=== PATIENT | female | born 1955 | race Caucasian/White ===

== ENCOUNTER → 2017-10-13 10:43 | Outpatient (CLI) | payer OTHER, SELFPAY ==
[2017-10-13 11:11] LABS: Bacteria Urine None Seen; RBC Urine None Seen (0-5/HPF); WBC Urine None Seen (0-5/HPF)
[2017-10-13 13:35] LABS: Hematocrit 39.6 % (36-46); Hemoglobin 13.3 g/dL (12.0-16.0); Mean Corpuscular HGB Conc 33.5 % (30-36); Mean Corpuscular Hemoglobin 32.7 PG (26-34); Mean Corpuscular Volume 97.5 fL (80-100); Platelet Count 152 X10^3/uL (150-400); Red Blood Cell Count 4.07 X10^6/uL (4.0-5.2); Red Cell Distribution Width 12.3 % (11.6-14.8)
[2017-10-13 13:40] LABS: Appearance Urine UA CLEAR; Bilirubin Urine UA NEGATIVE (NEGATIVE); Color Urine UA YELLOW; Glucose Urine UA NEGATIVE (Normal); Ketones Urine UA NEGATIVE (NEGATIVE); Leukocyte Esterase Urine UA NEGATIVE (NEGATIVE); Nitrite Urine UA Negative (Negative); Occult Blood Urine UA NEGATIVE (Negative); Protein Urine UA NEGATIVE (Negative); Specific Gravity Urine UA <=1.005 (1.000-1.035); Urobilinogen Urine UA 0.2 E.U./dL (0.2)
[2017-10-13 13:48] LABS: Culture Indicated Urine Cult Not Indicated; Squamous Epithelial Cell Urine 0-1 /HPF
[2017-10-13 14:17] LABS: Alanine Aminotransferase 30 IU/L (9-52); Albumin 4.5 g/dL (3.5-5.0); Albumin Globulin Ratio 1.5 (1.0-2.8); Alkaline Phosphatase 35 U/L (38-126); Aspartate Aminotransferase 32 IU/L (14-36); BUN Creatinine Ratio 16.3 (6-22); Bilirubin Total 0.6 mg/dL (0.2-1.3); Blood Urea Nitrogen 13 mg/dL (7-17); Calcium 9.5 mg/dL (8.4-10.2); Carbon Dioxide 32 mmol/L (22-32); Chloride 103 mmol/L (98-107); Estimated Glomerular Filt Rate > 60.0 mL/min (>60); Gamma Glutamyl Transpeptidase 14 U/L (12-43); Glucose 87 mg/dL (80-110); HEMOLYSIS < 15 (0-50); Potassium 3.9 mmol/L (3.4-5.1); Sodium 146 mmol/L (137-145); Total Protein 7.5 g/dL (6.3-8.2)
[2017-10-13 14:19] LABS: Neutrophils Absolute Manual 2800 /uL (3000-5900); Total Cells Counted 100
[2017-10-13 14:33] LABS: Free T4, Direct Thyroxine 1.01 ng/dL (0.78-2.19)
[2017-10-13 14:56] LABS: Thyroid Stimulating Hormone 2.98 uIU/mL (0.47-4.68)
[2017-10-13 16:34] LABS: Hepatitis B Surface Antigen NEGATIVE s/c (NEGATIVE)
[2017-10-13 16:52] LABS: HIV 1 and 2 Antibody NEGATIVE (NEGATIVE); Hep C Virus Ab w/Reflex Quant NEGATIVE s/c (NEGATIVE)
[2017-10-15 14:02] LABS: Parathyroid Hormone Int 77 pg/mL (14-64)
[2017-10-15 14:11] LABS: Lyme SCREEN w/ Reflex IgG IgM < 0.90 (< 0.90)
[2017-10-15 15:27] LABS: Hepatitis B Core IgM Nonreactive (Nonreactive)
[2017-10-16 00:11] LABS: ANA Screen, IFA Negative (Negative)
[2017-10-16 13:46] LABS: Hepatitis B Core Antibody Nonreactive (Nonreactive)
[2017-10-17 13:44] LABS: Hepatitis A Ab IgM Nonreactive (Nonreactive); Hepatitis A Ab Total Reactive (Nonreactive)
== END ==
PROVIDERS: Visit Provider Family Medicine
DX: D69.6 Thrombocytopenia, unspecified (principal); R20.2 Paresthesia of skin; R82.2 Biliuria; M85.80 Other specified disorders of bone density and structure, unspecified site; R74.8 Abnormal levels of other serum enzymes
CPT/HCPCS: 36415; 80053; 81001; 82977; 83970; 84439; 84443; 85025; 86038; 86618; 86703; 86704; 86705; 86803; 87340